=== PATIENT | male | born 1985 | race Caucasian/White ===

== ENCOUNTER 2021-03-26 21:37 | Emergency (ER) | payer SELFPAY ==
[~2021-03-26] VITALS: Ht 180.3 cm; Wt 66.3 kg
--- NOTE | 2021-03-26 23:25 | NUR ---
PT HAS C/O ABD PAIN WITH N/V WITH RECENT BLOOD IN VOMIT PRIOR TO COMING IN. PT ADMITED TO ETOH ABUSE WITH 3-4 BEERS A DAY. PT ON MONITOR WITH VSS,
[2021-03-27] MEDS ORDERED: ONDANSETRON 2MG/ML, 2ML IVPush ONE
[2021-03-27] MEDS ORDERED: PANTOPRAZOLE 40 MG IV IVPush ONE
[2021-03-27] MEDS ORDERED: SODIUM CHLORIDE 0.9% 1,000ML IVBOLUS ONE
[2021-03-27 00:02] LABS: BASOPHILS % (AUTO) 0 % (0-1); EOSINOPHILS % (AUTO) 0 % (1-7); LYMPHOCYTES % (AUTO) 11 % (22-44); MEAN CORPUSCULAR HGB CONC 34.9 g/dL (33.2-36.2); MEAN PLATELET VOLUME 7.9 fL (7.4-10.4); MONOCYTES % (AUTO) 5 % (2-9); NEUTROPHILS % (AUTO) 85 % (42-75); PLATELET COUNT 291 x10^3/uL (130-400); RED BLOOD COUNT 4.77 x10^6/uL (4.38-5.82); RED CELL DISTRIBUTION WIDTH 12.9 % (9.4-14.8)
[2021-03-27 00:03] LABS: MD NO
[2021-03-27 00:15] LABS: ALANINE AMINOTRANSFERASE 34 U/L (12-78); ALBUMIN 4.2 g/dL (3.4-5.0); ANION GAP 11 mmol/L (5-15); CALCIUM 9.2 mg/dL (8.5-10.1); CHLORIDE 109 mmol/L (98-107); CREATININE 0.93 mg/dL (0.7-1.3)
[2021-03-27 00:18] LABS: ALKALINE PHOSPHATASE 62 U/L (45-117); BILIRUBIN,TOTAL 0.5 mg/dL (0.2-1.0); TOTAL PROTEIN 7.6 g/dL (6.4-8.2)
[2021-03-27] MEDS ORDERED: PANTOPRAZOLE 40 MG IV ONE (00:27)
[2021-03-27] MEDS ORDERED: ONDANSETRON 2MG/ML, 2ML ONE (00:27)
[2021-03-27 00:31] VITALS: BP 129/71
--- NOTE | 2021-03-27 01:03 | NUR ---
PT RESTING COMFORTABLY IN GURNEY. IV SITE INTACT, NO SWELLING OR REDNESS. WAITING FOR PT TO GO TO XRAY FOR AN ABDOMINAL XRAY.
--- NOTE | 2021-03-27 01:21 | NUR ---
DR BURNETTE TO BEDSIDE AND SPOKE WITH PT ABOUT DISCHARGE AND UPDATED THE PT. RN TO BEDSIDE TO GIVE F/U AND D/C INSTRUCTIONS AND PRESCRIPTIONS AND PT V/U. PT AMBULATORY, AND PIV TO LEFT BICEP D/C'D WITHOUT INCIDENT AND CATH TIP INTACT.
== END 2021-03-27 01:30 | disposition home or self-care (01) ==
LOC: ED 03-27 01:26
DX: K29.21 Alcoholic gastritis with bleeding (principal); R11.2 Nausea with vomiting, unspecified; R10.13 Epigastric pain
CPT/HCPCS: 36415; 80053; 80320; 83690; 85025; 96361; 96374; 96375; 99285; C9113; J2405; J7030; G0480